=== PATIENT | male | born 1980 | race Caucasian/White ===

== ENCOUNTER 2018-04-09 14:33 | Emergency (ER) | payer OTHER ==
[2018-04-09] MEDS ORDERED: FAMOTIDINE 20 MG TAB ONE (15:29)
[2018-04-09] MEDS ORDERED: predniSONE 20 MG TAB ONE (15:29)
[2018-04-09] MEDS ORDERED: DIPHENHYDRAMINE 25 MG TAB/CAP ONE (15:29)
--- NOTE | 2018-04-09 15:52 | ER ---
Nurse's Notes [facility] Name: Wolf Martinez Age: 38 yrs Sex: Male : 1980 Arrival Date: 04/09/2018 Time: 14:40 Bed 30 Private MD: out of town, doctor Diagnosis: Allergic urticaria Presentation: 04/09 14:45 Presenting complaint: Patient states: i got back from lunch, i noticed i break out into hj rash chest, abd, legs, ate tacos from the food truck; denies SOB;. Transition of care: patient was not received from another setting of care. Onset: The symptoms/episode began/occurred acutely. Anaphylaxis evaluation, no signs or symptoms of anaphylaxis were noted. Onset of symptoms was April 09, 2018. Risk Assessment: Do you want to hurt yourself or someone else? Patient reports no desire to harm self or others. Initial Sepsis Screen: Does the patient meet any 2 criteria? No. Patient's initial sepsis screen is negative. Does the patient have a suspected source of infection? No. Patient's initial sepsis screen is negative. Care prior to arrival: None. 14:45 Method Of Arrival: Ambulatory 14:45 Acuity: SHAREE 4 hj Triage Assessment: 14:47 General: Appears in no apparent distress. uncomfortable, Behavior is calm, cooperative, hj appropriate for age. Pain: Denies pain. Historical: - Allergies: 14:47 No Known Allergies; hj - Home Meds: 14:47 None [Active]; hj - PMHx: 14:47 None; hj - PSHx: 14:47 hip; back; hj - Immunization history:: Adult Immunizations not immunized. - Social history:: Smoking status: Patient/guardian denies using tobacco, Patient/guardian denies using alcohol. - Ebola Screening: : Patient negative for fever greater than or equal to 101.5 degrees Fahrenheit, and additional compatible Ebola Virus Disease symptoms Patient denies exposure to infectious person Patient denies travel to an Ebola-affected area in the 21 days before illness onset. Screenin:47 Abuse screen: Denies threats or abuse. Denies injuries from another. Nutritional hj screening: No deficits noted. Tuberculosis screening: No symptoms or risk factors identified. Fall Risk None identified. Assessment: 14:48 Respiratory: Airway is patent Respiratory effort is even, unlabored, Respiratory hj pattern is regular, symmetrical, Breath sounds are clear. 14:56 General: Appears in no apparent distress. slender, well groomed, well developed, well rk2 nourished, Behavior is calm, cooperative, appropriate for age. Pain: Denies pain. Neuro: No deficits noted. Level of Consciousness is Oriented to person, place, time, situation. Respiratory: Airway is patent Respiratory effort is even, unlabored, Respiratory pattern is regular, symmetrical. GI: Reports diarrhea. Derm: Skin is pink, warm \T\ dry. Derm: Rash noted that is red. Vital Signs: 14:48 BP 119 / 63; Pulse 67; Resp 18; Temp 98.1(TE); Pulse Ox 97% on R/A; Weight 85.28 kg; hj Height 5 ft. 11 in. (180.34 cm); Pain 0/10; 16:10 BP 111 / 60; Pulse 74; Resp 17; Pulse Ox 98% on R/A; rk2 14:48 Body Mass Index 26.22 (85.28 kg, 180.34 cm) hj ED Course: 14:40 Patient arrived in ED. mr 14:40 out of town, doctor is Private Physician. mr 14:47 Triage completed. hj 14:48 Arm band placed on left wrist. hj 14:48 Patient has correct armband on for positive identification. Bed in low position. hj 14:51 Krystle Brush, RN is Primary Nurse. rk2 15:08 Justice Escobar PA is PHCP. cp 15:09 James Dolan MD is Attending Physician. cp 16:19 No provider procedures requiring assistance completed. Patient did not have IV access rk2 during this emergency room visit. Administered Medications: 15:30 Drug: Benadryl 50 mg Route: PO; tl3 16:15 Follow up: Response: No adverse reaction rk2 15:30 Drug: Pepcid 20 mg Route: PO; tl3 16:15 Follow up: Response: No adverse reaction rk2 15:30 Drug: predniSONE 60 mg Route: PO; tl3 16:14 Follow up: Response: No adverse reaction rk2 Outcome: 15:52 Discharge ordered by . cp 16:19 Discharged to home ambulatory. rk2 16:19 Condition: good 16:19 Discharge instructions given to patient, Prescriptions given X 3. 16:20 Patient left the ED. rk2 Signatures: Franice Lima mr Orlando Cruz RN RN hj Justice Escobar PA PA cp Kidder, Rhonda RN RN rk2 Sydni English RN RN tl3 Corrections: (The following items were deleted from the chart) 14:50 14:48 Pulse 67bpm; Resp 18bpm; Pulse Ox 97% RA; Temp 98.1F Temporal; 85.28 kg; Height 5 hj ft. 11 in.; BMI: 26.2; Pain 0/10; hj
--- NOTE | 2018-04-09 15:52 | EDPHYS ---
Physician Documentation [facility] Name: Wolf Martinez Age: 38 yrs Sex: Male : 1980 Arrival Date: 04/09/2018 Time: 14:40 Bed 30 Private MD: out of town, doctor ED Physician James Dolan HPI: 04/09 15:13 This 38 yrs old Male presents to ER via Ambulatory with complaints of cp Allergic Reaction. 15:13 The patient presents with rash, of the chest. Onset: The symptoms/episode cp began/occurred 2 hour(s) ago. Associated signs and symptoms: Pertinent positives: hives, Pertinent negatives: abdominal pain, chest pain, dysphagia, fever, Light headed. Possible causes: ate fish tacos at food truck. At home the patient or guardian has treated the symptoms with nothing. Severity of symptoms: in the emergency department the symptoms have improved mildly. Historical: - Allergies: 14:47 No Known Allergies; hj - Home Meds: 14:47 None [Active]; hj - PMHx: 14:47 None; hj - PSHx: 14:47 hip; back; hj - Immunization history:: Adult Immunizations not immunized. - Social history:: Smoking status: Patient/guardian denies using tobacco, Patient/guardian denies using alcohol. - Ebola Screening: : Patient negative for fever greater than or equal to 101.5 degrees Fahrenheit, and additional compatible Ebola Virus Disease symptoms Patient denies exposure to infectious person Patient denies travel to an Ebola-affected area in the 21 days before illness onset. ROS: 15:15 Eyes: Negative for injury, pain, redness, and discharge. cp 15:15 Constitutional: Negative for body aches, chills, fever, poor PO intake. 15:15 ENT: Negative for drainage from ear(s), ear pain, sore throat, difficulty swallowing, difficulty handling secretions. 15:15 Cardiovascular: Negative for chest pain, edema, palpitations. 15:15 Respiratory: Negative for cough, shortness of breath, wheezing. 15:15 Abdomen/GI: Negative for abdominal pain, nausea, vomiting, and diarrhea. 15:15 Skin: Positive for rash, of the chest. 15:15 Neuro: Negative for altered mental status, headache, weakness. 15:15 All other systems are negative. Exam: 15:17 Head/Face: Normocephalic, atraumatic. Eyes: Pupils equal round and reactive to light, cp extra-ocular motions intact. Lids and lashes normal. Conjunctiva and sclera are non-icteric and not injected. Cornea within normal limits. Periorbital areas with no swelling, redness, or edema. ENT: Nares patent. No nasal discharge, no septal abnormalities noted. Tympanic membranes are normal and external auditory canals are clear. Oropharynx with no redness, swelling, or masses, exudates, or evidence of obstruction, uvula midline. Mucous membranes moist. Neck: Trachea midline, no thyromegaly or masses palpated, and no cervical lymphadenopathy. Supple, full range of motion without nuchal rigidity, or vertebral point tenderness. No Meningismus. 15:17 Constitutional: The patient appears in no acute distress, alert, awake, non-diaphoretic, non-toxic, well developed, well nourished. 15:17 Chest/axilla: Inspection: rash, of the upper chest Palpation: is normal, no crepitus, no tenderness. 15:17 Cardiovascular: Rate: normal, Rhythm: regular, Heart sounds: murmur, not appreciated, rub, not appreciated, gallop, not appreciated, Edema: is not appreciated. 15:17 Respiratory: the patient does not display signs of respiratory distress, Respirations: normal, no use of accessory muscles, no retractions, no splinting, no tachypnea, labored breathing, is not present, Breath sounds: are clear throughout, no decreased breath sounds, no stridor, no wheezing. 15:17 Abdomen/GI: Inspection: abdomen appears normal, Palpation: abdomen is soft and non-tender, in all quadrants. 15:17 Back: pain, is absent. 15:17 Skin: consistent with urticaria, on the upper chest and upper back. 15:17 Neuro: Orientation: to person, place \T\ time. Mentation: is normal, Motor: moves all fours, strength is normal, Sensation: is normal, Gait: is steady. Vital Signs: 14:48 BP 119 / 63; Pulse 67; Resp 18; Temp 98.1(TE); Pulse Ox 97% on R/A; Weight 85.28 kg; hj Height 5 ft. 11 in. (180.34 cm); Pain 0/10; 16:10 BP 111 / 60; Pulse 74; Resp 17; Pulse Ox 98% on R/A; rk2 14:48 Body Mass Index 26.22 (85.28 kg, 180.34 cm) hj MDM: 15:09 Patient medically screened. cp 15:25 Differential diagnosis: anaphylaxis, angioedema, urticaria. cp 15:40 Data reviewed: vital signs, nurses notes, and as a result, I will discharge patient. ED cp course: VSS. Patient appears in no acute distress. Will discharge to home for continued monitoring. Administered Medications: 15:30 Drug: Benadryl 50 mg Route: PO; tl3 16:15 Follow up: Response: No adverse reaction rk2 15:30 Drug: Pepcid 20 mg Route: PO; tl3 16:15 Follow up: Response: No adverse reaction rk2 15:30 Drug: predniSONE 60 mg Route: PO; tl3 16:14 Follow up: Response: No adverse reaction rk2 Disposition: 17:29 Co-signature as Attending Physician, James Dolan MD I agree with the assessment and kdr plan of care. Disposition: 04/09/18 15:52 Discharged to Home. Impression: Allergic urticaria. - Condition is Stable. - Discharge Instructions: Hives. - Prescriptions for Pepcid 20 mg Oral Tablet - take 1 tablet by ORAL route every 12 hours for 5 days; 10 tablet. Zyrtec 10 mg Oral Tablet - take 1 tablet by ORAL route once daily As needed; 5 tablet. Prednisone 20 mg Oral Tablet - take 2 tablets by ORAL route once daily for 5 days start morning of 04-10-2018; 10 tablet. - Medication Reconciliation Form, Thank You Letter, Antibiotic Education, Prescription Opioid Use form. - Follow up: Private Physician; When: 2 - 3 days; Reason: Recheck today's complaints. - Problem is new. - Symptoms have improved. Signatures: James Dolan MD MD kdr Joaquin, Henry RN RN Justice Morejon PA PA cp Krystle Brush RN RN rk2 Sydni English RN RN tl3 Corrections: (The following items were deleted from the chart) 16:20 15:52 04/09/2018 15:52 Discharged to Home. Impression: Allergic urticaria. Condition is rk2 Stable. Forms are Medication Reconciliation Form, Thank You Letter, Antibiotic Education, Prescription Opioid Use. Follow up: Private Physician; When: 2 - 3 days; Reason: Recheck today's complaints. Problem is new. Symptoms have improved. cp
== END 2018-04-09 16:20 | disposition home or self-care (01) ==
LOC: ER 14:33
DX: L50.0 Allergic urticaria (principal)
CPT/HCPCS: 99283; J7512